=== PATIENT | female | born 1955 | race Caucasian/White ===

== ENCOUNTER 2022-01-21 06:40 | Day surgery (SDC) | payer MEDICARE, BC, SELFPAY ==
[2022-01-21] VITALS (12 sets, daily range): BP systolic 135–184; BP diastolic 75–124; PULSE 5–67; RESP 16; TEMP 36.2–36.4; O2SAT 91–99; BMI 29.1
--- NOTE | 2022-01-21 07:08 | SUR.PREOP ---
HOme COVID test negative. Result confirmed by publications writer.
--- NOTE | 2022-01-21 07:21 | SUR.OPER ---
patient transfered to OR4 on stretcher. Patient assisted to OR table.
[2022-01-21] MEDS: SODIUM CHLORIDE 0.9 % (FLUSH) 10 ML SYRINGE IVF (07:33)
[2022-01-21] MEDS: LACTATED RINGERS 1000 ML 1,000 ML 35 ML IV (07:34)
[2022-01-21] MEDS: CEFAZOLIN 2 GM INJ IVP (08:12)
[2022-01-21] MEDS: BUPIVACAINE 0.25% 30 ML INJECTION (08:56)
--- NOTE | 2022-01-21 09:11 | W.ANESCHARGE ---
Anesthesia Charges Start Date/Time Anesthesia Start Date: 01/21/22 Anesthesia Start Time: 08:04 Stop Date/Time Anesthesia Stop Date: 01/21/22 Anesthesia Stop Time: 09:10 Summary Emergency: No
--- NOTE | 2022-01-21 09:12 | W.ANESCHARGE ---
Anesthesia Charges Start Date/Time Anesthesia Start Date: 01/21/22 Anesthesia Start Time: 08:04 Stop Date/Time Anesthesia Stop Date: 01/21/22 Anesthesia Stop Time: 09:10 Summary Emergency: No
[2022-01-21] MEDS: fentaNYL 100 MCG/2 ML inj 50 MCG IVP ×2 (09:23→09:38)
--- NOTE | 2022-01-21 09:29 | P.GSOP_ITS ---
Operative Note Date of procedure: 01/21/22 Type of Procedure: Laparoscopic cholecystectomy Procedure Description: After discussing the risks and benefits of the procedure, the patient signed informed consent.? The operative site was marked and the patient was brought to the operating room and placed on the operating table in supine position.? Care was taken to pad the patient's pressure points.?? The patient was then intubated by anesthesia.?? The operative site was then prepped and draped in the usual sterile fashion.? A time-out was then performed. Entrance to the abdomen was gained via a 5 mm Visiport in the left upper quadrant. The abdomen was insufflated and briefly surveyed for signs of injury. There was none. A 10 mm umbilical port was placed as well as 2 working ports along the right costal margin, all under direct vision. The patient was then p laced in reverse Trendelenburg position with the right side up. The gallbladder fundus was grasped and retracted cephalad. The infundibulum was grasped. A combination of hook cautery and blunt dissection was used to carefully dissect out the cystic duct and artery until they could clearly be seen entering the gallbladder without any intervening structures. Of note, a prominent node of Calot was not visible. The gallbladder was dissected off the cystic plate to achieve the critical view. Once this was achieved the cystic duct and artery were each clipped with 2 clips proximally and 1 clip distally and transected with the scissors. The gallbladder was then taken off of the liver bed and removed from the abdomen using an Endo-Catch bag. The gallbladder bed was surveyed for hemostasis which appeared adequate. A small amount of bile which had spilled was suctioned. The ports were then removed and the abdomen desufflated. The umbilical port fascia was closed with 0 Vicryl. The skin was closed with absorbable subcuticular suture. Sterile dressings were then applied. Instrument sponge and needle counts were correct at the end of the case. The patient was then woken and transferred to the PACU in stable condition. ? The patient tolerated the procedure well. Findings: Normal appearing gallbladder. Node of Calot was not visualized Anesthesia: HEMANTHA Surgeon: Juany Bryson MD Condition: stable
== END 2022-01-21 10:45 | disposition home or self-care (01) ==
PROVIDERS: PCP Family Medicine; Visit Provider Surgery
PROC: 0FT44ZZ Resection of Gallbladder, Percutaneous Endoscopic Approach (ICD-10-PCS; CPT 47562; principal; 2022-01-21 08:00)
DX: K80.10 Calculus of gallbladder with chronic cholecystitis without obstruction (principal)
CPT/HCPCS: 47562; 790; 88304; J0690; J1170; J2250; J2405; J2704; J3010; J3490; J7120